=== PATIENT | female | born 1950 | race African-American/Black ===

== ENCOUNTER 2016-10-24 14:21 | Day surgery (SDC) | payer OTHER ==
[2016-10-23 10:01] LABS: HEMATOCRIT 35.1 % (36.0-48.0); HEMOGLOBIN 12.6 g/dL (12.0-16.0)
[2016-10-23 10:06] LABS: INTERNATIONAL NORMAL RATI 0.9 UNITS (-); PARTIAL THROMBO TIME 27.6 SEC (22.5-37.2); PROTIME (NOT ORD) 12.5 SEC (12.0-14.5)
[2016-10-23 10:14] LABS: BUN (BLOOD UREA NITROGEN) 19 MG/DL (6-23); CHLORIDE, SERUM 108 MMOL/L (96-112); CO2 (CARBON DIOXIDE) 26 MMOL/L (24-34); CREATININE 0.66 MG/DL (0.55-1.02); GFR AFRICAN AMERICAN 109 ML/MIN (>=60); GFR NON AFRICAN AMERICAN 94 ML/MIN (>=60); GLUCOSE, SERUM 96 MG/DL (60-99); POTASSIUM, SERUM 4.1 MMOL/L (3.5-5.3); SODIUM, SERUM 142 MMOL/L (135-148)
--- NOTE | ~2016-10-24 | OP ---
Record Of Operation [facility] [address] [place]. [address] NAME: ANTONIA CONTRERAS : 54 STATUS : [facility]#: [id number] AGE: 65 ADM/REG DATE : 10/24/16 MR#: [id number] REPORT SERV DATE: 11/01/16 DICTATED BY: DATE: REPORT STATUS : Draft TRANSCRIBED BY: MODL DATE: 11/01/16 DATE OF PROCEDURE: 10/24/2016 PREOPERATIVE DIAGNOSIS: Painful hammertoe deformity, 4th and 5th digits. POSTOPERATIVE DIAGNOSIS: Painful hammertoe deformity, 4th and 5th digits. NAME OF OPERATION: Arthroplasty of PIPJ with Smart toe implant, 5th digit. Arthroplasty of DIPJ with flexor tenotomy, 4th digit. ANESTHESIA: General. HEMOSTASIS: Pneumatic ankle tourniquet. ESTIMATED BLOOD LOSS: Less than 3 mL. PROCEDURE IN DETAIL: Under mild sedation, the patient was brought to the operating room and placed on the operating table in supine position. A pneumatic ankle tourniquet was then placed about the patient's left ankle. Following IV sedation, the foot was scrubbed, prepped, and draped in the usual aseptic manner. An Esmarch bandage was utilized to exsanguinate the patient's left foot. Pneumatic ankle tourniquet was inflated to 250 mmHg. Attention was then directed to the 5th digit of the left foot where two converging 2 cm semi elliptical oblique incisions were made over the dorsal aspect of this digit from distal- medial to proximal-lateral. The incision was centered over the PIPJ and encompassed the dorsal callus present at the PIPJ. The incision was deepened through subcutaneous tissue with care being taken to identify and retract all vital neurovascular structures. The ellipse of skin was removed in toto using sharp dissection. All bleeders were cauterized as necessary. At this time, a transverse tenotomy capsulotomy was performed to the proximal interphalangeal joint of the 5th digit of left foot. The head of the proximal phalanx was then freed of its capsular ligamentous attachments. Next, utilizing an oscillating bone saw, the head of the proximal phalanx was resected and passed from the operative site. The articular cartilage at the base of the middle phalanx was removed in toto and passed from the operative field. The wound was then flushed with copious amounts of normal sterile saline. The middle phalanx and proximal phalanx were prepared for the Smart toe implant and a neutral size 8 Smart toe implant was placed across the PIPJ with good alignment noted via intraoperative fluoroscopy. The tendon was reapproximated and coapted utilizing 3-0 and 4-0 Vicryl. The skin was reapproximated and coapted utilizing 4-0 nylon in a simple interrupted and horizontal mattress suture technique. Attention was then directed to the 4th digit of left foot where two converging 2 cm semi-elliptical longitudinal incisions were made over the dorsal-lateral aspect of this digit. The incision was centered over the PIPJ and middle phalanx and encompassed the dorsal-lateral callus present at the joint. The incision was deepened to the subcutaneous tissues with care being taken to identify and retract all vital neurovascular structures. The ellipse of skin was removed in toto using sharp dissection. All bleeders were cauterized as necessary. At this time, a transverse tenotomy and capsulotomy was performed to the distal interphalangeal joint of the 4th digit of left foot. The head of the middle phalanx was then freed of its capsular ligamentous attachments. Record Of Operation [facility] [address] [facility] [place]. [address] NAME: ANTONIA CONTRERAS : 54 STATUS : [facility]#: [id number] AGE: 65 ADM/REG DATE : 10/24/16 MR#: [id number] REPORT SERV DATE: 11/01/16 DICTATED BY: DATE: REPORT STATUS : Draft TRANSCRIBED BY: MODL DATE: 11/01/16 Next, utilizing an oscillating bone saw, the head of the middle phalanx was resected and passed from the operative site. The wound was then flushed with copious amounts of normal sterile saline. The extensor tendon was reapproximated and coapted utilizing 3-0 Vicryl and the skin was reapproximated and coapted utilizing 4-0 nylon in a simple interrupted suture technique. It should be noted that before the incision was closed on the 5th digit, the extensor tendons were lengthened using a Z-plasty and reapproximated with 6-0 nylon. A postoperative block consisting of 20 mL of 0.5% Marcaine plain was injected around the operative sites. The incision was dressed with Xeroform gauze and covered with sterile compressive dressing consisting of 4x4s, ABD pad, and Conform gauze wrap. Pneumatic ankle tourniquet was then deflated and a prompt hyperemic response was noted to all digits of the left foot. An Ricky wrap and postop shoe were then applied. The patient tolerated the procedure and anesthesia well. It should be noted that a flexor tenotomy was performed at the DIPJ plantarly at 4th digit before dressings were applied and the skin was reapproximated with 4-0 nylon in a simple interrupted suture technique. She was transferred to the recovery room. Vital signs were stable and vascular status was intact to all digits of the left foot. Following a period of postop monitoring, the patient was discharged home on written and oral postop instructions. 1. Keep dressing dry and intact. 2. Nonweightbearing to the left foot for the next week. 3. Ice and elevate left foot when at rest. 4. The patient to wear postop shoe at all times when ambulating. 5. The patient to contact Dr. Jansen for all postoperative followup care and if any problems arise. Prescription written for Phenergan 50 mg one tab to be taken by mouth as needed for pain. [place] 10/325 mg one tab to be taken by mouth every four-six hours as needed for pain. /ANNIKA Andre Jansen DPM / [id number] CC: DAVIS Figueroa M.D.
[~2016-10-24 14:21] MED LIST: ASAB PO; GARLIC PO; GLUCPH PO; MULTIPLE VIT PO; PRAV10 PO; SYN.025B PO; XALAT OPH; ZESTRIL2.5 MG PO
== END 2016-10-24 21:24 | disposition home or self-care (01) ==
LOC: SDC 14:21
PROVIDERS: Podiatrist
PROC: 0SQQ0ZZ Repair Left Toe Phalangeal Joint, Open Approach (ICD-10-PCS; principal; 2016-10-24 15:45)
DX: M20.42 Other hammer toe(s) (acquired), left foot (principal); E11.9 Type 2 diabetes mellitus without complications; E03.9 Hypothyroidism, unspecified; Z90.12 Acquired absence of left breast and nipple
CPT/HCPCS: 71020; 80048; 82962; 85014; 85018; 85610; 85730; 93005; C1713; J0690; J2250; J2710; J3010